=== PATIENT | female | born 1975 | race Caucasian/White ===

== ENCOUNTER 2016-05-20 12:58 | Emergency (ER) | payer SELFPAY ==
[2015-05-21 06:06] VITALS: BMI 26.7
[~2016-05-20 12:58] MED LIST: PERCOCET 10/3251 TA1 PO; PRILOSEC20 MG PO; ROBAXIN500 MG PO; TOPAMAX50 MG PO; TYLENOL W/CODEI1 TAB PO
== END 2016-05-20 16:22 | disposition home or self-care (01) ==
LOC: D.ER 12:58
DX: R51 Headache (principal)

== ENCOUNTER 2017-11-19 17:36 | Emergency (ER) | payer MEDICARE ==
[~2017-11-19] VITALS: Ht 167.6 cm; Wt 79.1 kg
[2017-11-19 17:39] VITALS: Ht 167.6 cm; Wt 79.1 kg
[2017-11-19] MEDS ORDERED: TOPAMAX25 MG PO (17:42)
[2017-11-19] MEDS ORDERED: TYLENOL #4 W/CO1 TAB PO (17:43)
[2017-11-19 18:05] LABS: BASOPHILS 0.5 % (0-2); EOSINOPHILS 0.7 % (0-7); HEMATOCRIT 35.1 % (36.0-48.0); HEMOGLOBIN 11.9 g/dL (12-16); IMMATURE GRANULOCYTES 0.3 % (0-5); LYMPHOCYTES 17.2 % (15-50); MCH 32.3 pg (26.0-34.0); MCHC 33.9 g/dL (31.0-37.0); MCV 95.4 fL (80.0-100.0); MEAN PLATELET VOLUME 9.8 fL (7.4-10.4); MONOCYTES 9.2 % (2-11); NEUTROPHILS 72.1 % (40-80); PLATELET COUNT 327 10x3/uL (130-400); RBC 3.68 10x6/uL (4.00-5.40); RDW 12.6 % (11.5-14.5); WBC 10.1 10x3/uL (4.8-10.8)
[2017-11-19 18:12] LABS: APPEARANCE CLEAR (CLEAR); BILIRUBIN NEGATIVE (NEGATIVE); COLOR STRAW (YELLOW); GLUCOSE NEGATIVE (NEGATIVE); KETONE NEGATIVE (NEGATIVE); NITRITE NEGATIVE (NEGATIVE); PROTEIN NEGATIVE (NEGATIVE); UROBILINOGEN NORMAL (NORMAL)
[2017-11-19 18:37] LABS: ALBUMIN 3.5 g/dL (3.4-5.0); ANION GAP 13.7 mmol/L (8-16); BILIRUBIN - TOTAL 0.23 mg/dL (0.2-1.3); CALCIUM 8.5 mg/dL (8.5-10.1); CARBON DIOXIDE 25.7 mmol/L (21.0-32.0); CREATININE - SERUM 0.9 mg/dL (0.6-1.3); POTASSIUM - SERUM 3.4 mmol/L (3.5-5.1); PROTEIN - SERUM 7.6 g/dL (6.4-8.2)
[2017-11-19 22:15] VITALS: BP 117/71
== END 2017-11-19 22:16 | disposition home or self-care (01) ==
LOC: D.ER 17:36
PROVIDERS: Emergency Medicine
DX: N83.201 Unspecified ovarian cyst, right side (principal)

== ENCOUNTER 2018-01-26 16:01 | Emergency (ER) | payer MEDICARE ==
[~2018-01-26] VITALS: Ht 167.6 cm; Wt 78.2 kg
[~2018-01-26 16:01] MED LIST changes: +TOPAMAX25 MG PO; +TYLENOL #4 W/CO1 TAB PO
[2018-01-26 16:20] VITALS: Ht 167.6 cm; Wt 78.2 kg
[2018-01-26] MEDS ORDERED: PHENERGAN25 M1 PO (17:41)
[2018-01-26 18:18] VITALS: BP 127/81
== END 2018-01-26 18:17 | disposition home or self-care (01) ==
LOC: D.ER 16:01
DX: G43.909 Migraine, unspecified, not intractable, without status migrainosus (principal)

== ENCOUNTER 2018-02-08 08:05 | Day surgery (SDC) | payer MEDICARE ==
[2018-02-05 12:39] LABS: BASOPHILS 0.6 % (0-2); HEMATOCRIT 40.4 % (36.0-48.0); HEMOGLOBIN 13.3 g/dL (12-16); IMMATURE GRANULOCYTES 0.1 % (0-5); LYMPHOCYTES 27.8 % (15-50); MCH 31.3 pg (26.0-34.0); MCHC 32.9 g/dL (31.0-37.0); MCV 95.1 fL (80.0-100.0); MEAN PLATELET VOLUME 10.4 fL (7.4-10.4); MONOCYTES 11.1 % (2-11); NEUTROPHILS 59.4 % (40-80); PLATELET COUNT 351 10x3/uL (130-400); RBC 4.25 10x6/uL (4.00-5.40); RDW 12.1 % (11.5-14.5); WBC 6.9 10x3/uL (4.8-10.8)
[2018-02-05 12:55] LABS: HCG URINE NEGATIVE (NEGATIVE)
[~2018-02-08] VITALS: Ht 167.6 cm; Wt 78.9 kg
--- NOTE | ~2018-02-08 | OP ---
PATIENT NAME: KYMBERLY NUNEZ MEDICAL RECORD: [id number] :73 LOCATION:D.FORMERLY [facility] [place] ADMISSION DATE: SURGEON: LOGAN GARCIA MD DATE OF OPERATION: 02/08/2018 PREOPERATIVE DIAGNOSIS: Chronic pelvic pain. POSTOPERATIVE DIAGNOSES: Left ovarian mass. PROCEDURE PERFORMED: 1. Diagnostic laparoscopy. 2. Laparoscopic salpingo-oophorectomy, left. SURGEON: Logan Garcia MD ANESTHESIOLOGIST: Chava Tavarez MD ANESTHESIA: General anesthetic. FINDINGS: Uterus is surgically absent. Right ovary is unremarkable. Left ovary has 2 lobulated cysts approximately 2.5 to 3 cm each. One cyst is darkened, contains dark fluid and appears irregular. SPECIMEN REMOVED: Left ovary and tube. SPECIMEN DISPOSITION: Pathology. ESTIMATED BLOOD LOSS: Minimal. FLUIDS: 1400 cc of lactated Ringer's. URINE OUTPUT: Quantity sufficient void prior to the procedure. COMPLICATIONS: None. INDICATIONS: The patient is a 43-year-old female, status post vaginal hysterectomy with chronic pelvic pain. The patient consented for diagnostic laparoscopy and any indicated procedure. DESCRIPTION OF PROCEDURE: After informed consent was assured, the patient was taken to the operating room where anesthetic was obtained. She was laid supine on the table and now prepped and draped. Incision was made at the umbilicus to accommodate a 5-mm trocar, which was inserted without difficulty and pneumoperitoneum developed. Accessory ports placed in the right lower quadrant. Through this port, a probe was placed and the bowel swept free of the pelvis. The findings are as above. A third trocar was now placed 2 fingerbreadths above the symphysis in the midline. This was a 10-12 Xcel port. The left ovary and tube on gentle traction to the midline from the midline port, a Gyrus coagulation cutter was inserted from the right and the infundibulopelvic ligament of the left was serially compressed, coagulated, and until the left ovary and tube was free of its attachments to the infundibulopelvic ligament. This was now placed in an Endobag and removed through the midline incision site. The surgical area was inspected and found to be hemostatic. The pneumoperitoneum was now released. The accessory trocars were removed under direct visualization and the skin reapproximated with Monocryl stitch. The OPERATIVE REPORT [id number] KYMBERLY NUNEZ primary trocar was now removed and Monocryl was used to close the site as well. Dermabond was applied. Sponge, lap, and needle counts correct times 2. The patient went to the recovery area in stable condition. TRANSINT:[id number] Voice Confirmation ID: [id number] DOCUMENT ID: [id number] LOGAN GARCIA MD at 1032 CC: [id number] DICTATION DATE: 02/08/18 1116 CEMENT PAVER: 02/08/18 1140 [facility] [place] 02/08/[address] [address]
[~2018-02-08 08:05] MED LIST changes: +PHENERGAN25 M1 PO
[2018-02-08] MEDS ORDERED: ZANAFLEX4 MG PO (08:32)
[2018-02-08] MEDS ORDERED: NAPROXEN250 MG PO (08:33)
[2018-02-08] MEDS ORDERED: BONTRIL SLOW-R105 MG PO (08:34)
[2018-02-08] MEDS ORDERED: AMITIZA24 MCG PO (08:40)
[2018-02-08 08:41] VITALS: BP 108/67; Ht 167.6 cm; Wt 78.9 kg
== END 2018-02-08 14:00 | disposition home or self-care (01) ==
LOC: D.OPS 08:05 → D.PAN 09:45 → D.OPS 14:00
PROVIDERS: Obstetrics & Gynecology
DX: N83.02 Follicular cyst of left ovary (principal); Z01.812 Encounter for preprocedural laboratory examination

== ENCOUNTER 2018-11-18 20:01 | Emergency (ER) | payer MEDICARE ==
[~2018-11-18] VITALS: Ht 167.6 cm; Wt 75.0 kg
[~2018-11-18 20:01] MED LIST changes: +AMITIZA24 MCG PO; +BONTRIL SLOW-R105 MG PO; +NAPROXEN250 MG PO; +ZANAFLEX4 MG PO
[2018-11-18 20:14] VITALS: Ht 167.6 cm; Wt 75.0 kg
[2018-11-18 20:35] LABS: BASOPHILS 0.7 % (0-2); EOSINOPHILS 1.1 % (0-7); HEMATOCRIT 38.8 % (36.0-48.0); HEMOGLOBIN 12.6 g/dL (12-16); IMMATURE GRANULOCYTES 0.4 % (0-5); LYMPHOCYTES 26.9 % (15-50); MCHC 32.5 g/dL (31.0-37.0); MCV 95.6 fL (80.0-100.0); MEAN PLATELET VOLUME 10.3 fL (7.4-10.4); MONOCYTES 11.6 % (2-11); NEUTROPHILS 59.3 % (40-80); PLATELET COUNT 291 10x3/uL (130-400); RBC 4.06 10x6/uL (4.00-5.40); RDW 12.6 % (11.5-14.5); WBC 8.1 10x3/uL (4.8-10.8)
[2018-11-18 20:36] LABS: APPEARANCE CLEAR (CLEAR); BILIRUBIN NEGATIVE (NEGATIVE); COLOR STRAW (YELLOW); GLUCOSE NEGATIVE (NEGATIVE); KETONE NEGATIVE (NEGATIVE); NITRITE NEGATIVE (NEGATIVE); PROTEIN NEGATIVE (NEGATIVE); SPECIFIC GRAVITY 1.005 (1.005-1.020); UROBILINOGEN NORMAL (NORMAL)
[2018-11-18 20:48] LABS: ALBUMIN 3.7 g/dL (3.4-5.0); ANION GAP 10.7 mmol/L (8-16); BILIRUBIN - TOTAL 0.27 mg/dL (0.2-1.3); CALCIUM 8.6 mg/dL (8.5-10.1); CREATININE - SERUM 0.9 mg/dL (0.6-1.3); POTASSIUM - SERUM 4.7 mmol/L (3.5-5.1); PROTEIN - SERUM 7.7 g/dL (6.4-8.2)
[2018-11-18] MEDS ORDERED: MIRALAX17 GM PO (21:54)
[2018-11-18 22:10] VITALS: BP 128/74
== END 2018-11-18 22:10 | disposition home or self-care (01) ==
LOC: D.ER 20:01
PROVIDERS: Emergency Medicine
DX: R10.9 Unspecified abdominal pain (principal); K58.1 Irritable bowel syndrome with constipation

== ENCOUNTER 2019-10-15 03:32 | Outpatient (CLI) | payer MEDICARE ==
[~2019-10-15] VITALS: Ht 167.6 cm; Wt 81.8 kg
[~2019-10-15 03:32] MED LIST changes: +MIRALAX17 GM PO
[2019-10-15 03:36] VITALS: Ht 167.6 cm; Wt 81.8 kg
[2019-10-15] MEDS ORDERED: TYLENOL #4 W/CO1 TAB PO (03:41)
[2019-10-15] MEDS ORDERED: TEGRETOL200 MG PO (03:42)
[2019-10-15] MEDS ORDERED: DIAMOX250 MG PO (03:43)
[2019-10-15 03:55] LABS: BASOPHILS 0.6 % (0-2); EOSINOPHILS 1.4 % (0-7); HEMATOCRIT 42.8 % (36.0-48.0); HEMOGLOBIN 13.3 g/dL (12-16); IMMATURE GRANULOCYTES 0.4 % (0-5); LYMPHOCYTES 24.1 % (15-50); MCH 30.4 pg (26.0-34.0); MCHC 31.1 g/dL (31.0-37.0); MCV 97.9 fL (80.0-100.0); MONOCYTES 13.1 % (2-11); NEUTROPHILS 60.4 % (40-80); PLATELET COUNT 347 10x3/uL (130-400); RBC 4.37 10x6/uL (4.00-5.40); RDW 12.3 % (11.5-14.5); WBC 7.7 10x3/uL (4.8-10.8)
[2019-10-15 03:59] LABS: CALC OSMOLALITY 273 mosm/kg (275-300); CALCIUM 8.9 mg/dL (8.5-10.1); CARBON DIOXIDE 28.4 mmol/L (21.0-32.0); CHLORIDE - SERUM 103 mmol/L (98-107); GLUCOSE 118 mg/dL (74-106); POTASSIUM - SERUM 3.9 mmol/L (3.5-5.1); SODIUM 137 mmol/L (136-145); UREA NITROGEN 9 mg/dL (7-18); eGFR NON AFRICAN AMERICAN 63 mL/min (90-120)
[2019-10-15 04:08] LABS: ALBUMIN 3.8 g/dL (3.4-5.0); ALKALINE PHOSPHATASE 146 U/L (30-120); ALT (SGPT) 61 U/L (10-68); AMYLASE - SERUM 108 U/L (25-115); BILIRUBIN - TOTAL 0.29 mg/dL (0.2-1.3); LIPASE 126 U/L (73-393); PROTEIN - SERUM 7.9 g/dL (6.4-8.2); TROPONIN-I < 0.017 ng/mL (0.000-0.060)
[2019-10-15 04:58] LABS: GLUCOSE NEGATIVE (NEGATIVE); KETONE NEGATIVE (NEGATIVE); NITRITE NEGATIVE (NEGATIVE); SPECIFIC GRAVITY 1.015 (1.005-1.020); UROBILINOGEN NORMAL (NORMAL)
[2019-10-15 04:59] LABS: BILIRUBIN NEGATIVE (NEGATIVE)
--- NOTE | 2019-10-15 08:00 | NUR ---
ARRIVES TO UNIT PER W/C, C/O ABD PAIN, LEFT BED SHORTY TO GO TO THE BATHROOM, STATES THAT SHE DID HAVE A MED BM, WILL CONT TO FOLLOW THRU WITH ORDERS
[2019-10-15 12:30] VITALS: BP 131/77
[2019-10-15] MEDS ORDERED: PROZAC20 MG PO (17:13)
[2019-10-15] MEDS ORDERED: PROZAC20 MG (17:13)
[2019-10-15] MEDS ORDERED: ALDACTONE50 MG PO (17:15)
[2019-10-15 17:39] VITALS: BP 120/71
--- NOTE | 2019-10-15 19:46 | NUR ---
PATIENT RESTING IN BED WITH NO S/S OF DISTRESS. PATIENT REQUESTED PAIN MEDICATION. EXPAINED TO THE PATIENT THAT HER PAIN MEDICATION IS AVAILABLE EVERY FOUR HOURS AND THAT THE NEXT DOSE WILL BE AVAILABLE AT 0. PATIENT VERBALIZED UNDERSTANDING AND DENIES OTHER NEEDS. ENCOURAGED THE PATIENT TO CALL IF SHE HAS NEEDS. WILL CONTINUE TO MONITOR.
[2019-10-15 20:00] VITALS: BP 118/66
[2019-10-15] MEDS ORDERED: TRILEPTAL300 MG PO (21:14)
[2019-10-16] VITALS: BP 115/69
[2019-10-16 04:00] VITALS: BP 121/71
[2019-10-16 06:12] LABS: BASOPHILS 0.8 % (0-2); EOSINOPHILS 2.2 % (0-7); HEMATOCRIT 38.6 % (36.0-48.0); HEMOGLOBIN 11.9 g/dL (12-16); IMMATURE GRANULOCYTES 0.2 % (0-5); LYMPHOCYTES 29.3 % (15-50); MCH 30.2 pg (26.0-34.0); MCHC 30.8 g/dL (31.0-37.0); MEAN PLATELET VOLUME 9.9 fL (7.4-10.4); MONOCYTES 11.1 % (2-11); NEUTROPHILS 56.4 % (40-80); PLATELET COUNT 284 10x3/uL (130-400); RBC 3.94 10x6/uL (4.00-5.40); RDW 12.3 % (11.5-14.5)
[2019-10-16 06:30] LABS: CALC OSMOLALITY 275 mosm/kg (275-300); CALCIUM 7.7 mg/dL (8.5-10.1); CARBON DIOXIDE 27.2 mmol/L (21.0-32.0); CHLORIDE - SERUM 107 mmol/L (98-107); CREATININE - SERUM 0.8 mg/dL (0.6-1.3); GLUCOSE 90 mg/dL (74-106); MAGNESIUM - SERUM 1.8 mg/dL (1.8-2.4); PHOSPHOROUS 2.7 mg/dL (2.5-4.9); POTASSIUM - SERUM 3.8 mmol/L (3.5-5.1); SODIUM 139 mmol/L (136-145); UREA NITROGEN 6 mg/dL (7-18); eGFR NON AFRICAN AMERICAN 82 mL/min (90-120)
--- NOTE | 2019-10-16 07:35 | NUR ---
RESTING IN BED, NO DISTRESS NOTED, IV INFUSING, HAD SHOWER THIS AM, NPO FOR MRCP
[2019-10-16 12:14] VITALS: BP 123/45
[2019-10-16 16:20] VITALS: BP 107/60
--- NOTE | 2019-10-16 16:30 | NUR ---
SS ENEMA GIVEN WITH LARGE RESULTS, PT STATES THAT HER STOMACH FEELS MUCH BETTER
--- NOTE | 2019-10-16 19:45 | NUR ---
PATIENT RESTING IN BED WITH NO S/S OF DISTRESS. BROUGHT PATIENT A DRINK PER HER REQUEST. PATIENT DENIES OTHER NEEDS. AT THIS TIME. BED IN LOWEST POSITION AND CALL LIGHT WITHIN REACH. ENCOURAGED THE PATIENT TO CALL IF SHE HAS NEEDS. WILL CONTINUE TO MONITOR.
[2019-10-16 20:00] VITALS: BP 125/63
[2019-10-17] VITALS: BP 92/49
[2019-10-17 04:00] VITALS: BP 100/62
[2019-10-17 06:21] LABS: BASOPHILS 0.8 % (0-2); EOSINOPHILS 1.4 % (0-7); HEMOGLOBIN 11.1 g/dL (12-16); IMMATURE GRANULOCYTES 0.2 % (0-5); MCH 30.2 pg (26.0-34.0); MCHC 30.8 g/dL (31.0-37.0); MCV 98.1 fL (80.0-100.0); MONOCYTES 12.3 % (2-11); NEUTROPHILS 58.3 % (40-80); PLATELET COUNT 267 10x3/uL (130-400); RBC 3.67 10x6/uL (4.00-5.40); RDW 12.1 % (11.5-14.5); WBC 5.9 10x3/uL (4.8-10.8)
[2019-10-17 06:37] LABS: ALBUMIN 2.7 g/dL (3.4-5.0); ALKALINE PHOSPHATASE 126 U/L (30-120); ALT (SGPT) 55 U/L (10-68); BILIRUBIN - TOTAL 0.35 mg/dL (0.2-1.3); CALC OSMOLALITY 279 mosm/kg (275-300); CALCIUM 7.9 mg/dL (8.5-10.1); CARBON DIOXIDE 28.5 mmol/L (21.0-32.0); CHLORIDE - SERUM 109 mmol/L (98-107); CREATININE - SERUM 0.8 mg/dL (0.6-1.3); GLUCOSE 98 mg/dL (74-106); POTASSIUM - SERUM 3.8 mmol/L (3.5-5.1); PROTEIN - SERUM 6.2 g/dL (6.4-8.2); SODIUM 142 mmol/L (136-145); eGFR NON AFRICAN AMERICAN 82 mL/min (90-120)
[2019-10-17 06:43] LABS: UREA NITROGEN 3 mg/dL (7-18)
[2019-10-17 07:40] LABS: APTT 38.2 SECONDS (22.8-39.4); INR 1.02 (0.85-1.17); PROTIME 13.4 SECONDS (11.6-15.0)
[2019-10-17 08:43] VITALS: BP 120/61
--- NOTE | 2019-10-17 09:03 | NUR ---
ASSESSMENT PER FLOW SHEET. PATIENT IS WITHOUT DISTRESS.CALL LIGHT IN REACH. MEDS ORDERED
[2019-10-17 12:49] VITALS: BP 124/76
--- NOTE | 2019-10-17 15:06 | NUR ---
PATIENT IS WITHOUT NEEDS,RESTING.CALL LIGHT IN REACH
--- NOTE | 2019-10-17 16:12 | NUR ---
DISCHARGE INSTRUCTIONS,STATES UNDERSTANDING.IV DCD WITH CATH TIP INTACT. WAITING ON RIDE FOR TRANSPORT HOME.
--- NOTE | 2019-10-17 16:31 | NUR ---
LEFT UNIT VIA WHEELCHAIR FOR TRANSPORT HOME
== END 2019-10-17 16:31 | disposition home health service (06) ==
LOC: D.MS 03:32 → D.OPS 03:32 → D.ER 03:32 → D.MS 07:22 → EDSTATUS 07:27 → D.OPS 10-17 16:31
PROVIDERS: Emergency Medicine; Family Medicine; Specialist; ATTEND Family Medicine
DX: K56.41 Fecal impaction (principal); R10.9 Unspecified abdominal pain; K58.1 Irritable bowel syndrome with constipation; K92.1 Melena

== ENCOUNTER → 2019-12-08 11:00 | Outpatient (CLI) | payer SELFPAY ==
[2019-10-15 03:36] VITALS: BMI 29.1
[~2019-12-08 11:00] MED LIST changes: +ALDACTONE50 MG PO; +DIAMOX250 MG PO; +PROZAC20 MG; +PROZAC20 MG PO; +TEGRETOL200 MG PO; +TRILEPTAL300 MG PO
== END | disposition home or self-care (01) ==
LOC: D.LAB 11:00
PROVIDERS: ATTEND Internal Medicine Gastroenterology
DX: E88.49 Other mitochondrial metabolism disorders (principal)

== ENCOUNTER 2019-12-23 14:25 | Emergency (ER) | payer SELFPAY ==
[~2019-12-23] VITALS: Ht 167.6 cm; Wt 81.8 kg
[2019-12-23 14:30] VITALS: Ht 167.6 cm; Wt 81.8 kg
[2019-12-23 15:15] LABS: BASOPHILS 1.2 % (0-2); EOSINOPHILS 1.5 % (0-7); HEMATOCRIT 38.3 % (36.0-48.0); HEMOGLOBIN 12.3 g/dL (12-16); IMMATURE GRANULOCYTES 0.1 % (0-5); LYMPHOCYTES 30.4 % (15-50); MCH 30.8 pg (26.0-34.0); MCHC 32.1 g/dL (31.0-37.0); MEAN PLATELET VOLUME 10.2 fL (7.4-10.4); MONOCYTES 11.5 % (2-11); NEUTROPHILS 55.3 % (40-80); PLATELET COUNT 310 10x3/uL (130-400); RBC 3.99 10x6/uL (4.00-5.40); RDW 12.3 % (11.5-14.5); WBC 6.9 10x3/uL (4.8-10.8)
[2019-12-23 15:31] LABS: CALC OSMOLALITY 280 mosm/kg (275-300); CALCIUM 8.2 mg/dL (8.5-10.1); CARBON DIOXIDE 29.4 mmol/L (21.0-32.0); CHLORIDE - SERUM 108 mmol/L (98-107); GLUCOSE 113 mg/dL (74-106); POTASSIUM - SERUM 3.8 mmol/L (3.5-5.1); SODIUM 141 mmol/L (136-145); UREA NITROGEN 11 mg/dL (7-18); eGFR NON AFRICAN AMERICAN 63 mL/min (90-120)
[2019-12-23 15:37] LABS: BILIRUBIN NEGATIVE (NEGATIVE); GLUCOSE NEGATIVE (NEGATIVE); KETONE NEGATIVE (NEGATIVE); NITRITE NEGATIVE (NEGATIVE); UROBILINOGEN NORMAL (NORMAL)
[2019-12-23 15:39] LABS: ALBUMIN 3.2 g/dL (3.4-5.0); ALKALINE PHOSPHATASE 83 U/L (30-120); ALT (SGPT) 25 U/L (10-68); AMYLASE - SERUM 60 U/L (25-115); BILIRUBIN - TOTAL 0.25 mg/dL (0.2-1.3); LIPASE 99 U/L (73-393); TROPONIN-I < 0.017 ng/mL (0.000-0.060)
[2019-12-23 19:03] VITALS: BP 146/65
== END 2019-12-23 19:05 | disposition home or self-care (01) ==
LOC: D.ER 14:25
PROVIDERS: Family Medicine
DX: R10.11 Right upper quadrant pain (principal); R11.0 Nausea

== ENCOUNTER 2020-08-24 20:28 | Emergency (ER) | payer MEDICARE ==
[~2020-08-24] VITALS: Ht 167.6 cm; Wt 81.8 kg
[2020-08-24 20:32] VITALS: BP 156/86; Ht 167.6 cm; Wt 81.8 kg
== END 2020-08-24 21:44 | disposition home or self-care (01) ==
LOC: D.ER 20:28
DX: S61.211A Laceration without foreign body of left index finger without damage to nail, initial encounter (principal); W26.0XXA Contact with knife, initial encounter; Y93.9 Activity, unspecified; Y92.9 Unspecified place or not applicable